=== PATIENT | male | born 1995 | race Caucasian/White ===

== ENCOUNTER 2017-03-27 12:12 | Emergency (ER) | payer OTHER ==
[2017-03-27 12:12] VITALS: BMI 37.3
--- NOTE | 2017-03-27 13:27 | C.PDOC ---
History Of Present Illness 21 male come in for evaluation of epigastric pain gradually developed since yesterday. Pt reports, since today AM pain was radiating up to retrosternal area. Pt reports, " every time I smoke I feel that retrosternal chest pain". Pt describes pain as retrosternal tightness, non-radiating, intermittent burning. Pt also request evaluation of Right lower leg noted for past few days. Otherwise , pt denies fever, chills, headache, dizziness, visual changes, focal deficits, neck pain, SOB, dyspnea, palpitation, diaphoresis, V/D, back pain, UTI sx, denies B/L calf pain, recent immobilization. Ambulate to ED for evaluation, not in nay apparent distress. Time Seen by Provider: 03/27/17 12:32 Chief Complaint (Nursing): Abdominal Pain History Per: Patient Past Medical History Reviewed: Historical Data, Nursing Documentation, Vital Signs Vital Signs: Last Vital Signs Temp 98.5 F 03/27/17 15:31 Pulse 86 03/27/17 15:31 Resp 18 03/27/17 15:31 BP 120/70 03/27/17 15:31 Pulse Ox 97 03/27/17 15:31 - Medical History PMH: Back Problems Denies: Chronic Kidney Disease Surgical History: No Surg Hx Family History: States: Unknown Family Hx - Social History Hx Tobacco Use: Yes Hx Alcohol Use: Yes Hx Substance Use: No - Immunization History Hx Tetanus Toxoid Vaccination: No Hx Influenza Vaccination: No Hx Pneumococcal Vaccination: No Review Of Systems Except As Marked, All Systems Reviewed And Found Negative. Constitutional: Negative for: Fever, Chills Eyes: Negative for: Vision Change ENT: Negative for: Throat Pain Cardiovascular: Positive for: Chest Pain. Negative for: Palpitations, Edema, Light Headedness, Other Respiratory: Negative for: Cough, Shortness of Breath, Wheezing Gastrointestinal: Positive for: Abdominal Pain. Negative for: Nausea, Vomiting , Hematochezia, Hematemesis Genitourinary: Negative for: Dysuria Musculoskeletal: Negative for: Neck Pain Skin: Negative for: Rash Neurological: Negative for: Weakness, Numbness, Altered Mental Status, Headache , Dizziness Physical Exam - Physical Exam Appears: Well, Non-toxic, No Acute Distress Skin: Normal Color, Warm, Rash (scattered erythematous rash to anterior aspect Right lower leg. No cellulitis. No flactualnce.) Head: Normacephalic Eye(s): bilateral: PERRL Nose: No Discharge Oral Mucosa: Moist Throat: No Drooling Neck: Trachea Midline, Supple Cardiovascular: Rhythm Regular, No Murmur, No JVD, Other ((-) carotid bruits B/L ) Respiratory: No Decreased Breath Sounds, No Accessory Muscle Use, No Rhonchi, No Stridor Gastrointestinal/Abdominal: Soft, Tenderness (mild epigastric tenderness), No Distention, No Guarding Back: No CVA Tenderness Extremity: Normal ROM, No Pedal Edema, No Calf Tenderness (B/L), No Deformity, No Swelling Neurological/Psych: Oriented x3, Normal Speech, Normal Motor, Normal Sensation, Normal Reflexes ED Course And Treatment - Laboratory Results Result Diagrams: 03/27/17 13:58 03/27/17 13:58 ECG: Interpreted By Me, Viewed By Me (and ED attending) ECG Rhythm: Sinus Rhythm Interpretation Of ECG: SR@85/min, NAD, no acute T wave or ST-T changes. Rate From EC (BPM) O2 Sat by Pulse Oximetry: 98 (RA) Pulse Ox Interpretation: Normal - Radiology CXR: Interpreted by Me, Viewed By Me CXR Interpretation: Yes: No Acute Disease - Other Rad CXR X-Ray: Viewed By Me, Read By Radiologist Interpretation: HISTORY: COMPARISON: 01/03/2015. TECHNIQUE: Chest PA and lateral. FINDINGS: LINES AND TUBES: None. LUNG AND PLEURA: The lungs are well inflated and clear. HEART AND MEDIASTINUM: The heart is not enlarged. The hilar and mediastinal contours are within normal limits. SKELETAL STRUCTURES: The bony structures are within normal limits for the patient's age. VISUALIZED UPPER ABDOMEN: Normal. OTHER FINDINGS: None. IMPRESSION: No active pulmonary disease. Progress Note: On re-eval, pt is afberile, hemodynamicaly stable. NOn-toxic. Pt reports moderate improvement in sx after ED treatment. DEnies CP at present time. Tolerate PO well in ED. PulsEOx 98% RA. ENT: No acute findings. Neck: SUpple, (-) JVD, (-) carotid bruits B/L. Lungs: CTA B/L, BS equal B/L. CVS: (+ )S1S2, reg. ABd: Benign, (-) guarding, (-) rebound, (-) localized tenderness. B/L LEs: no calf tenderness, no edema. Nos rash r/o insect bites. Blood work review and appears normal. D-Dimer, troponin- negative. EKG, CXR- no acute findings. PT has clinical findings c/w retrosternal/epigstric pain r/o GERD. Pt advised and ref. to F/u with PMD, GI In 2-3 days for re-eavl. return to ED if any worsening or new changes. Disposition Counseled Patient/Family Regarding: Studies Performed, Diagnosis, Need For Followup, Rx Given - Disposition Referrals: [facility] [Outside] Disposition: HOME/ ROUTINE Disposition Time: 15:00 Condition: STABLE Additional Instructions: TAKE MEDICATION PRESCRIBED CONSIDER TO STOP SMOKING FOLLOW UP WITH PMD, GI IN 2-3 DAYS FOR RE-EVALUATION. RETURN TO ED IF ANY WORSENING OR NEW CHANGES. Prescriptions: Pantoprazole Sodium [Protonix] 40 mg PO DAILY #20 tablet. Instructions: Chest Pain (ED), Gastroesophageal Reflux Disease (ED), Acute Rash (ED) Forms: [employer] (Algerian), Work Excuse - Clinical Impression Clinical Impression: Epigastric abdominal pain, Chest pain, Rash
[2017-03-27 13:44] LABS: RBC URINE 1 /hpf (0-3); URINE BILIRUBIN NEGATIVE (NEGATIVE); URINE BLOOD NEGATIVE (NEGATIVE); URINE COLOR Yellow (YELLOW); URINE GLUCOSE (UA) NORMAL (Normal); URINE KETONE NEGATIVE (NEGATIVE); URINE LEUKOCYTE ESTERASE NEG Leu/uL (Negative); URINE PROTEIN NEGATIVE (NEGATIVE); URINE UROBILINOGEN NORMAL mg/dL (0.2-1.0); WBC URINE 1 /hpf (0-5)
--- NOTE | 2017-03-27 13:47 | RAD ---
HISTORY: COMPARISON: 01/03/2015. TECHNIQUE: Chest PA and lateral FINDINGS: LINES AND TUBES: None. LUNG AND PLEURA: The lungs are well inflated and clear. HEART AND MEDIASTINUM: The heart is not enlarged. The hilar and mediastinal contours are within normal limits. SKELETAL STRUCTURES: The bony structures are within normal limits for the patient's age. VISUALIZED UPPER ABDOMEN: Normal. OTHER FINDINGS: None. IMPRESSION: No active pulmonary disease.
[2017-03-27 14:11] LABS: BASO # 0.1 K/uL (0.0-0.2); BASO % 1.2 % (0.0-2.0); EOS # 0.2 K/uL (0.0-0.7); EOS % 2.3 % (0.0-4.0); HEMATOCRIT 39.7 % (35.0-51.0); LYMPH % 29.3 % (20.0-40.0); MEAN CELL VOLUME 92.5 fL (80.0-94.0); MEAN CORPUSCULAR HEMOGLOBIN 32.7 pg (27.0-31.0); MEAN CORPUSCULAR HGB CONC 35.3 g/dL (33.0-37.0); MEAN PLATELET VOLUME 8.7 fL (7.2-11.7); MONO # 0.5 K/uL (0.0-0.8); MONO % 7.7 % (0.0-10.0); RED CELL DISTRIBUTION WIDTH 13.1 % (11.5-14.5); WHITE BLOOD COUNT 6.7 K/uL (4.8-10.8)
[2017-03-27 14:21] VITALS: PULSE 86; RESP 18
[2017-03-27 14:21] LABS: ALB/GLOB RATIO 1.2 (1.0-2.1); ALKALINE PHOSPHATASE 71 U/L (38-126); ALT/SGPT 145 U/L (21-72); AST/SGOT 75 U/L (17-59); BILIRUBIN,TOTAL 0.5 mg/dL (0.2-1.3); BLOOD UREA NITROGEN 15 mg/dL (9-20); CALCIUM 8.7 mg/dl (8.6-10.4); CARBON DIOXIDE 27 mmol/L (22-30); CHLORIDE 103 mmol/L (98-107); GFR AFRICAN-AMERICAN > 60; GLUCOSE,RANDOM 96 mg/dL (75-110); POTASSIUM 3.9 mmol/L (3.6-5.2); SODIUM 137 mmol/L (132-148); TOTAL PROTEIN 7.4 g/dL (6.3-8.3)
[2017-03-27 15:32] VITALS: BP 120/70; TEMP 98.5
[2017-03-28 12:07] VITALS: O2SAT 98
--- NOTE | 2017-03-30 12:16 | CARD ---
APPROVED REPORT EKG Measurement Heart [id number] <Conclusion> Normal sinus rhythm Normal ECG
== END 2017-03-27 15:32 | disposition home or self-care (01) ==
LOC: C.ER 12:12
DX: R10.13 Epigastric pain (principal); R07.9 Chest pain, unspecified; R21 Rash and other nonspecific skin eruption
CPT/HCPCS: 71020; 80053; 81001; 82948; 83690; 85025; 85378; 87086; 93005; 96374; 96375; 99285; C9113; J2405

== ENCOUNTER 2017-04-26 05:51 | Emergency (ER) | payer SELFPAY ==
[2017-04-26 05:51] VITALS: BMI 37.3
[2017-04-26 05:56] VITALS: O2SAT 96
[2017-04-26] MEDS ORDERED: Sodium Chloride 0.9% 1,000 ML IV ONE (06:11)
--- NOTE | 2017-04-26 06:14 | C.PDOC ---
History Of Present Illness 21 yo male come in for evaluation of cold sx gradually developed for 72 hrs associated with bodyaches, intermittent headache, chills, fever, dry cough. Otherwise, pt denies lethargy, drooling, severe headache, dizziness, neck pain, CP, SOB, dyspnea, wheezing, abd. pain, V/D, back pain, UTI sx. At the time of evaluation, appears comfortable, not in nay apparent distress. Took Ibuprofen early today. Time Seen by Provider: 04/26/17 05:54 Chief Complaint (Nursing): Flu-like Symptoms History Per: Patient Onset/Duration Of Symptoms: Gradual Past Medical History Reviewed: Historical Data, Nursing Documentation, Vital Signs Vital Signs: Last Vital Signs Temp 98.5 F 04/26/17 07:09 Pulse 91 H 04/26/17 07:09 Resp 20 04/26/17 07:09 BP 127/75 04/26/17 07:09 Pulse Ox 96 04/26/17 07:09 - Medical History PMH: Back Problems Denies: Chronic Kidney Disease Family History: States: Unknown Family Hx - Social History Hx Tobacco Use: Yes Hx Alcohol Use: Yes Hx Substance Use: No - Immunization History Hx Tetanus Toxoid Vaccination: No Hx Influenza Vaccination: No Hx Pneumococcal Vaccination: No Review Of Systems Except As Marked, All Systems Reviewed And Found Negative. Constitutional: Positive for: Fever, Chills, Malaise ENT: Positive for: Nose Congestion, Throat Pain. Negative for: Ear Discharge, Nose Discharge Cardiovascular: Negative for: Chest Pain Respiratory: Positive for: Cough. Negative for: Shortness of Breath, Wheezing Gastrointestinal: Negative for: Nausea, Vomiting, Abdominal Pain, Diarrhea Genitourinary: Negative for: Dysuria Musculoskeletal: Negative for: Neck Pain, Back Pain Skin: Negative for: Rash Neurological: Negative for: Weakness, Numbness, Altered Mental Status, Headache , Dizziness Physical Exam - Physical Exam Appears: Well, Non-toxic, No Acute Distress Skin: Normal Color, Warm, Dry, No Rash Head: Normacephalic Eye(s): bilateral: PERRL Ear(s): Bilateral: Normal Nose: No Flaring, No Discharge Oral Mucosa: Moist, No Drooling Tongue: Normal Appearing Lips: Normal Appearing Throat: Erythema (mild B/L), No Exudate, No Drooling Neck: Trachea Midline, Supple, Other ((-) meningeal sign) Cardiovascular: Rhythm Regular Respiratory: No Decreased Breath Sounds, No Accessory Muscle Use, No Stridor, No Wheezing Gastrointestinal/Abdominal: Soft, No Tenderness, No Distention, No Guarding, No Rebound Back: No CVA Tenderness Extremity: Normal ROM, No Deformity, No Swelling Neurological/Psych: Oriented x3, Normal Speech ED Course And Treatment - Laboratory Results Result Diagrams: 04/26/17 06:21 04/26/17 06:21 Lab Interpretation: No Acute Changes O2 Sat by Pulse Oximetry: 96 Pulse Ox Interpretation: Normal Progress Note: At 6:55, pt resting comforably, not in any apparent distress. Afebrile, hemodynamicaly stable. Non-toxic. Tolerate Po well in ED. PulsEOx 96 % RA. ENT: no acute findings. Neck: Supple, (-) meningeal sign. Lungs: CTA B/ L, BS equal B/L. CVS: (+)S1S2, reg. Abd: benign. Neurologicaly intact. Blood work review and appears normal, no sign of degydration. CXR- normal study. Influenza A (+). TAmiflu given. results review and discussed with patient. Pt has clinical findings c/w Influenza. Pt advised. ref. to f/u with PMD in 2-3 days for re-eavl. return if any new changes. Disposition Counseled Patient/Family Regarding: Studies Performed, Diagnosis, Need For Followup, Rx Given - Disposition Referrals: [facility] [Outside] Disposition: HOME/ ROUTINE Disposition Time: 06:57 Condition: STABLE Additional Instructions: ENCOURAGE FLUIDS TAKE MEDICATION PRESCRIBED FOLLOW UP WITH PMD IN 2-3 DAYS FOR RE-EVALUATION. RETURN TO ED IF ANY WORSENING OR NEW CHANGES. Prescriptions: Oseltamivir Phosphate [Tamiflu] 75 mg PO BID #10 capsule Instructions: Influenza (ED) Forms: [employer] (Greenlandic), Work Excuse - Clinical Impression Clinical Impression: Influenza
[2017-04-26] MEDS ORDERED: Sodium Chloride 0.9% 1,000 ML ONE (06:27)
[2017-04-26 06:32] LABS: BASO # 0.1 K/uL (0.0-0.2); BASO % 0.7 % (0.0-2.0); EOS # 0.1 K/uL (0.0-0.7); EOS % 1.3 % (0.0-4.0); HEMOGLOBIN 13.1 g/dL (12.0-18.0); LYMPH # 0.8 K/uL (1.0-4.3); LYMPH % 9.4 % (20.0-40.0); MEAN CELL VOLUME 92.8 fL (80.0-94.0); MEAN CORPUSCULAR HEMOGLOBIN 32.1 pg (27.0-31.0); MEAN CORPUSCULAR HGB CONC 34.6 g/dL (33.0-37.0); MEAN PLATELET VOLUME 8.9 fL (7.2-11.7); MONO # 0.7 K/uL (0.0-0.8); MONO % 8.5 % (0.0-10.0); NEUT # 6.9 K/uL (1.8-7.0); NEUT % 80.1 % (50.0-75.0); PLATELET COUNT 196 K/uL (130-400); RBC 4.09 Mil/uL (4.40-5.90); RED CELL DISTRIBUTION WIDTH 13.5 % (11.5-14.5); WHITE BLOOD COUNT 8.6 K/uL (4.8-10.8)
[2017-04-26 06:44] LABS: BLOOD UREA NITROGEN 8 mg/dL (9-20); CALCIUM 8.3 mg/dl (8.6-10.4); GFR AFRICAN-AMERICAN > 60; GFR NON-AFRICAN AMERICAN > 60
[2017-04-26 07:09] VITALS: BP 127/75; PULSE 91; RESP 20; TEMP 98.5
[2017-04-26 08:32] LABS: BANDS 2 % (0-2); EOSINOPHIL 1 % (0-4); LYMPHOCYTE 6 % (20-40); MONOCYTE 7 % (0-10); NEUTROPHIL 84 % (50-75); PLATELET ESTIMATE NORMAL (NORMAL); TOTAL CELLS COUNTED 100
--- NOTE | 2017-04-26 10:14 | RAD ---
Chest x-ray two views History: Cough. Comparison: 03/27/2017 Findings: No focal infiltrate or effusion. Heart size within normal limits. Impression: No focal infiltrate or effusion.
== END 2017-04-26 07:11 | disposition home or self-care (01) ==
LOC: C.ER 05:51
DX: J11.1 Influenza due to unidentified influenza virus with other respiratory manifestations (principal); F17.210 Nicotine dependence, cigarettes, uncomplicated
CPT/HCPCS: 71046; 80048; 85025; 87804; 96361; 96374; 99284; J2405; J7040